=== PATIENT | male | born 2000 | race African-American/Black ===

== ENCOUNTER 2019-07-17 12:31 | Emergency (ER) | payer SELFPAY ==
[2019-07-17 13:45] LABS: Bilirubin Negative (Negative); Blood, Urine 1+ (Negative); Clarity Extra Turbid (Clear); Glucose, Urine (Dipstick) Normal (Negative); Leukocyte 500 Leu/uL (Negative); Mucous/LPF 2+ LPF (<2+); Nitrite Negative (Negative); Protein, Urine (Dipstick) 100 mg/dL (Neg-Trace); Squamous Epithelial None Seen HPF (0-3); WBC/HPF Greater than 50 HPF (0-3)
[2019-07-17 13:58] LABS: Bacteria/HPF Rare-Few HPF (None Seen); Calcium Oxalate Crystals 1+ HPF (None Seen)
[2019-07-17] MEDS ORDERED: Azithromycin 250 MG TAB ONE (14:59)
[2019-07-17] MEDS ORDERED: Lidocaine 1% PF 5 ML VIAL ONE (14:59)
[2019-07-17] MEDS ORDERED: cefTRIAXone\\ROCEPHIN 250 MG VIAL ONE (14:59)
[2019-07-20 22:41] LABS: Chlam.trachomatis by PCR,Urine Inconclusive (NotDetected)
== END 2019-07-17 15:37 | disposition home or self-care (01) ==
LOC: ERS 12:31
DX: R30.0 Dysuria (principal); N34.2 Other urethritis
CPT/HCPCS: 81003; 81015; 87491; 87591; 96372; 99283; J0696; J2001

== ENCOUNTER 2021-06-13 22:15 | Emergency (ER) | payer SELFPAY | END 2021-06-13 23:39 | disposition home or self-care (01) | LOC: ERS 22:15 | DX: S60.511A Abrasion of right hand, initial encounter (principal); F17.200 Nicotine dependence, unspecified, uncomplicated ==

== ENCOUNTER 2022-03-21 15:34 | Emergency (ER) | payer SELFPAY ==
[2022-03-21 16:45] LABS: #Eosinphils 0.1 thou/uL (0.0-0.7); #Lymphocytes 1.6 thou/uL (1.20-3.40); #Monocytes 0.8 thou/uL (0.11-0.59); #Neutrophils 4.6 thou/uL (1.40-6.50); %Basophils 0.2 % (0.0-1.0); %Eosinophils 1.9 % (0.0-10.0); %Lymphocytes 23.1 % (21.0-51.0); %Monocytes 10.6 % (0.0-10.0); %Neutrophils 64.2 % (42.0-75.0); Mean Corpuscular HGB CONC 33.2 g/dL (32.0-36.0); Mean Corpuscular Hemoglobin 30.7 pg (27.0-31.0); Mean Corpuscular Volume 92.4 fl (78.0-98.0); Mean Platelet Volume 6.7 fL (7.4-10.4); Platelet Count 304 10x3/uL (130-400); RBC Distribution Width 12.4 % (11.5-14.5); Red Blood Cell (RBC) Count 4.87 mill/uL (4.70-6.10); White Blood Cell (WBC) Count 7.1 10x3/uL (4.8-10.8)
[2022-03-21 17:00] LABS: Acetaminophen Less than 10.0 mcg/mL (10.0-30.0); Alcohol Less than 10 mg/dL (Less than 10); Salicylate Less than 8.0 mg/dL (15.0-30.0)
[2022-03-21 17:04] LABS: ALT (SGPT) 19 U/L (8-55); AST (SGOT) 23 U/L (5-34); Albumin 4.7 g/dL (3.5-5.0); Alkaline Phosphatase 90 U/L (40-110); Anion Gap 21 mmol/L (10-20); BUN (Urea Nitrogen) 8 mg/dL (8.9-20.6); Bilirubin, Total 0.6 mg/dL (0.2-1.2); Calc. Creatinine Clearance 0 mL/min (70-130); Calcium 10.1 mg/dL (7.8-10.44); Carbon Dioxide 17 mmol/L (22-29); Chloride 100 mmol/L (98-107); Estimated GFR 84; Globulin 2.7 g/dL (2.4-3.5); Glucose 92 mg/dL (70-105); Potassium 3.8 mmol/L (3.5-5.1); Protein, Total 7.4 g/dL (6.0-8.3); Sodium 134 mmol/L (136-145)
[2022-03-21 18:09] LABS: Actual Bicarbonate (HCO3v) 22 mEq/L (22-28); Base Excess -2.5 mEq/L (-2.0 to +3.0); Calcium, Ionized (venous) 1.12 mmol/L (1.16-1.32); Chloride (VBG) 102 mmol/L (98-106); Hemoglobin (Hb) 14.8 g/dL (13.2-17.3); Potassium (VBG) 3.38 mmol/L (3.70-5.30); pH (venous) 7.41 (7.32-7.43)
[2022-03-21 20:28] LABS: Lactic Acid 0.9 mmol/L (0.5-2.2)
== END 2022-03-21 21:34 | disposition home or self-care (01) ==
LOC: ERS 15:34
DX: F41.9 Anxiety disorder, unspecified (principal); R41.82 Altered mental status, unspecified; F17.210 Nicotine dependence, cigarettes, uncomplicated
CPT/HCPCS: 36415; 80053; 80307; 82550; 82805; 83605; 85025; 93005; 96360; 96361